=== PATIENT | female | born 1960 | race Caucasian/White ===

== ENCOUNTER 2016-12-06 12:31 | Emergency (ER) | payer OTHER ==
[2016-12-06 14:38] LABS: Hematocrit 39 % (35-47); Hemoglobin 12.9 g/dl (12.0-16.0); Mean Corpuscular HGB Conc 33 g/dl (31-36); Mean Corpuscular Hemoglobin 32 pg (27-31); Mean Corpuscular Volume 96 fL (80-97); Mean Platelet Volume 9 um3 (7.4-10.4); Red Blood Count 4.02 10^6/ul (4.0-5.4); Red Cell Distribution Width 13 % (10.5-15); White Blood Count 4.7 10^3/ul (3.5-10.8)
[2016-12-06 14:59] LABS: Albumin 3.8 g/dL (3.2-5.2); BUN/Creatinine Ratio 18.5 (8-20); C Reactive Protein 3.22 mg/L (< 5.00); EGFR African American 120.8 (>60); Globulin 2.3 g/dL (2-4); Potassium 4.4 mmol/L (3.5-5.0); Total Bilirubin 0.3 mg/dL (0.2-1.0); Total Protein 6.1 g/dL (6.4-8.9)
--- NOTE | 2016-12-06 15:05 | RAD ---
Indication: Back pain. Recently started blood thinners. Comparison: No relevant prior exams available on the [facility] PACS for comparison. Technique: Noncontrast CT lumbar sacral spine. Multiplanar reformation. Report: Negative for retroperitoneal hematoma within the [id number]. Mild calcific plaque of normal diameter abdominal aorta and common iliac arteries. Negative for fracture or spondylolysis at any level. No focal osseous lesions evident. Normal vertebral alignment without spondylolisthesis at any level. Multilevel facet joint osteoarthritis increasing in severity extending caudal with moderate arthropathy at the L5-S1 level. T12-L1: Unremarkable disc level for age without acquired spinal stenosis. L1-L2: Unremarkable disc level for age without acquired spinal stenosis. L2-L3: Unremarkable disc level for age without acquired spinal stenosis. L3-L4: Slight annular disc bulge. Negative for acquired spinal stenosis. L4-L5: Mild annular disc bulge. Negative for acquired spinal stenosis. L5-S1: Minimal annular disc bulge and vertebral endplate osteophytosis. Negative for acquired spinal stenosis. IMPRESSION: 1. Negative for retroperitoneal hematoma within the [id number]. 2. 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 No CT evidence for significant acquired spinal stenosis at any level.
[2016-12-06 15:14] LABS: Urine Bacteria Absent (Absent); Urine Bilirubin Negative (Negative); Urine Glucose Negative (Negative); Urine Nitrite Negative (Negative)
[2016-12-06 15:41] VITALS: BP 132/76
--- NOTE | 2016-12-09 15:54 | ED ---
I, Oh,Soohrudy, scribed for Bimal Pate MD on 12/06/16 at 1508 . GI/ HPI - HPI Summary HPI Summary: This 56 y/o female presents to ED for vaginal spotting since 2 days ago and lower back pain a day ago. Vaginal bleeding has been spontaneously resolved, but lower back still persists. Movement does not make pain worse. Negative weakness, dysuria, or incontinence. Pt is diagnosed with afib 5 days ago, and was put on Eliquis 4 days ago. She stopped Eliquis per research archaeologist's order and was directed to ED. Pt is currently metoprolol. Primary care involves Dr. Woodall. - History of Current Complaint Chief Complaint: EDGeneral Time Seen by Provider: 12/06/16 13:40 Stated Complaint: LOWER BACK PAIN Hx Obtained From: Patient Onset/Duration: Started Days Ago, Atraumatic, Still Present Timing: Constant Pain Intensity: 0 Location of Pain: None Associated Signs and Symptoms: Positive: Back Pain, Other: - vaginal spotting, currently resolved Aggravating Factor(s): Nothing Alleviating Factor(s): Nothing - Allergy/Home Medications Allergies/Adverse Reactions: Allergies Allergy/AdvReac Type Severity Reaction Status Date / Time Penicillins Allergy Unknown Verified 12/06/16 12:38 Reaction Details Sulfa Antibiotics Allergy Unknown Verified 12/06/16 12:38 Reaction Details PMH/Surg Hx/FS Hx/Imm Hx Cardiovascular History: Reports: Hx Atrial Fibrillation Infectious Disease History: Denies: Traveled Outside the [place] in Last 30 Days - Family History Known Family History: Positive: Cardiac Disease - Positive to father - Social History Hx Substance Use: No Substance Use Type: Reports: None Hx Tobacco Use: No Smoking Status (MU): Never Smoked Tobacco Review of Systems Negative: Fever Positive: other - vaginal . Negative: dysuria Positive: Other - Positive back pain Negative: Weakness All Other Systems Reviewed And Are Negative: Yes Physical Exam Triage Information Reviewed: Yes Vital Signs On Initial Exam: Initial Vitals Temp Pulse Resp BP Pulse Ox 98.3 F 74 16 129/80 97 12/06/16 12:38 12/06/16 12:38 12/06/16 12:38 12/06/16 12:38 12/06/16 12:38 Vital Signs Reviewed: Yes Appearance: Positive: Well-Appearing, No Pain Distress Skin: Positive: Warm, Skin Color Reflects Adequate Perfusion, Dry Head/Face: Positive: Normal Head/Face Inspection Eyes: Positive: Normal ENT: Positive: Normal ENT inspection Neck: Positive: Supple, Nontender Respiratory/Lung Sounds: Positive: Clear to Auscultation, Breath Sounds Present Cardiovascular: Positive: RRR, Pulses are Symmetrical in both Upper and Lower Extremities. Negative: IRR Abdomen Description: Positive: Nontender, Soft Musculoskeletal: Positive: Normal Neurological: Positive: Normal. Negative: Focal Deficit @ Psychiatric: Positive: Affect/Mood Appropriate AVPU Assessment: Alert Diagnostics - Vital Signs Vital Signs Temp Pulse Resp BP Pulse Ox 12/06/16 12:38 98.3 F 74 16 129/80 97 - Laboratory Lab Results: Lab Results 12/06/16 12/06/16 12/06/16 Range/Units 14:25 14:25 14:25 WBC 4.7 (3.5-10.8) 10^3/ul RBC 4.02 (4.0-5.4) 10^6/ul Hgb 12.9 (12.0-16.0) g/dl Hct 39 (35-47) % MCV 96 (80-97) fL MCH 32 H (27-31) pg MCHC 33 (31-36) g/dl RDW 13 (10.5-15) % Plt Count 226 (150-450) 10^3/ul MPV 9 (7.4-10.4) um3 Neut % (Auto) 58.3 (38-83) % Lymph % (Auto) 26.9 (25-47) % [place] % (Auto) 10.8 H (1-9) % Eos % (Auto) 2.9 (0-6) % Baso % (Auto) 1.1 (0-2) % Absolute Neuts (auto) 2.8 (1.5-7.7) 10^3/ul Absolute Lymphs (auto) 1.3 (1.0-4.8) 10^3/ul Absolute Monos (auto) 0.5 (0-0.8) 10^3/ul Absolute Eos (auto) 0.1 (0-0.6) 10^3/ul Absolute Basos (auto) 0.1 (0-0.2) 10^3/ul Absolute Nucleated RBC 0 10^3/ul Nucleated RBC % 0.1 INR (Anticoag Therapy) 0.92 (0.89-1.11) Sodium 138 (133-145) mmol/L Potassium 4.4 (3.5-5.0) mmol/L Chloride 105 (101-111) mmol/L Carbon Dioxide 30 (22-32) mmol/L Anion Gap 3 (2-11) mmol/L BUN 12 (6-24) mg/dL Creatinine 0.65 (0.51-0.95) mg/dL Est GFR ( Amer) 120.8 (>60) Est GFR (Non-Af Amer) 94.0 (>60) BUN/Creatinine Ratio 18.5 (8-20) Glucose 90 (70-100) mg/dL Calcium 9.0 (8.6-10.3) mg/dL Total Bilirubin 0.30 (0.2-1.0) mg/dL AST 23 (13-39) U/L ALT 15 (7-52) U/L Alkaline Phosphatase 25 L (34-104) U/L C-Reactive Protein 3.22 (< 5.00) mg/L Total Protein 6.1 L (6.4-8.9) g/dL Albumin 3.8 (3.2-5.2) g/dL Globulin 2.3 (2-4) g/dL Albumin/Globulin Ratio 1.7 (1-3) Urine Color Urine Appearance Urine pH (5-9) Ur Specific [place] (1.010-1.030) Urine Protein (Negative) Urine Ketones (Negative) Urine Blood (Negative) Urine Nitrate (Negative) Urine Bilirubin (Negative) Urine Urobilinogen (Negative) Ur Leukocyte Esterase (Negative) Urine WBC (Auto) (Absent) Urine RBC (Auto) (Absent) Ur Squamous Epith Cells (Absent) Urine Bacteria (Absent) Urine Glucose (Negative) 12/06/16 Range/Units 14:50 WBC (3.5-10.8) 10^3/ul RBC (4.0-5.4) 10^6/ul Hgb (12.0-16.0) g/dl Hct (35-47) % MCV (80-97) fL MCH (27-31) pg MCHC (31-36) g/dl RDW (10.5-15) % Plt Count (150-450) 10^3/ul MPV (7.4-10.4) um3 Neut % (Auto) (38-83) % Lymph % (Auto) (25-47) % [place] % (Auto) (1-9) % Eos % (Auto) (0-6) % Baso % (Auto) (0-2) % Absolute Neuts (auto) (1.5-7.7) 10^3/ul Absolute Lymphs (auto) (1.0-4.8) 10^3/ul Absolute Monos (auto) (0-0.8) 10^3/ul Absolute Eos (auto) (0-0.6) 10^3/ul Absolute Basos (auto) (0-0.2) 10^3/ul Absolute Nucleated RBC 10^3/ul Nucleated RBC % INR (Anticoag Therapy) (0.89-1.11) Sodium (133-145) mmol/L Potassium (3.5-5.0) mmol/L Chloride (101-111) mmol/L Carbon Dioxide (22-32) mmol/L Anion Gap (2-11) mmol/L BUN (6-24) mg/dL Creatinine (0.51-0.95) mg/dL Est GFR ( Amer) (>60) Est GFR (Non-Af Amer) (>60) BUN/Creatinine Ratio (8-20) Glucose (70-100) mg/dL Calcium (8.6-10.3) mg/dL Total Bilirubin (0.2-1.0) mg/dL AST (13-39) U/L ALT (7-52) U/L Alkaline Phosphatase (34-104) U/L C-Reactive Protein (< 5.00) mg/L Total Protein (6.4-8.9) g/dL Albumin (3.2-5.2) g/dL Globulin (2-4) g/dL Albumin/Globulin Ratio (1-3) Urine Color Yellow Urine Appearance Cloudy Urine pH 7.0 (5-9) Ur Specific [place] 1.004 L (1.010-1.030) Urine Protein Negative (Negative) Urine Ketones Negative (Negative) Urine Blood Negative (Negative) Urine Nitrate Negative (Negative) Urine Bilirubin Negative (Negative) Urine Urobilinogen Negative (Negative) Ur Leukocyte Esterase Trace H (Negative) Urine WBC (Auto) Trace(0-5/hpf) (Absent) Urine RBC (Auto) Trace(0-2/hpf) (Absent) Ur Squamous Epith Cells Present H (Absent) Urine Bacteria Absent (Absent) Urine Glucose Negative (Negative) Result Diagrams: 12/06/16 14:25 12/06/16 14:25 Lab Statement: Any lab studies that have been ordered have been reviewed, and results considered in the medical decision making process. - CT L-Spine CT Interpretation: No Acute Changes - 1. Negative for retroperitoneal hematoma within the [id number]. 2. 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 No CT evidence for significant acquired spinal stenosis at any level. CT Interpretation Completed By: Radiologist Re-Evaluation - Re-Evaluation First Eval Re-Evaluation Time: 15:24 Comment: in room to update pt on UA, bloodwork, and CT L-spine imaging results. Plan of care involving discharge and outpatient f/u is discussed, and she is agreeable. GIGU Course/Dx - Course Course Of Treatment: Ms. Marlin Chu came in concerned about back pain that she had had for a couple days. She had been diagnosed with A-Fib and started on Coumadin but then developed vaginal bleeding and the Coumadin was stopped. She was evaluated for a hematoma causing her back pain and nothing was found. She had no neurological involvment and went home to F/U. - Diagnoses Provider Diagnoses: Back pain Discharge - Discharge Plan Condition: Stable Disposition: HOME Patient Education Materials: Back Pain (ED) Referrals: Non Staff,Doctor [Primary Care Provider] - 2 Days Additional Instructions: Be sure to follow up with your primary care provider. The documentation as recorded by the Miguel covarrubias Soohyun accurately reflects the service I personally performed and the decisions made by me, Bimal Pate MD.
== END 2016-12-06 15:40 | disposition home or self-care (01) ==
LOC: ED 12:31
DX: M54.5 Low back pain (principal); Z88.2 Allergy status to sulfonamides; Z88.0 Allergy status to penicillin; M47.9 Spondylosis, unspecified; I48.91 Unspecified atrial fibrillation
CPT/HCPCS: 36415; 72131; 80053; 81003; 81015; 85025; 85610; 86140; 87086; 99282